=== PATIENT | female | born 1970 | race Caucasian/White ===

== ENCOUNTER 2022-07-17 05:13 | Emergency (ER) | payer MEDICAID, OTHER ==
[~2022-07-17] VITALS: Ht 154.9 cm; Wt 71.1 kg
[2022-07-17 08:29] VITALS: BP 116/78
[2022-07-17] MEDS ORDERED: KETOROLAC TROMETH 60MG/2ML VIAL IM ONE (08:30)
[2022-07-17] MEDS ORDERED: HYDROcodone-ACET 5/325MG TAB PO ONE (08:30)
[2022-07-17] MEDS ORDERED: methylPREDNISolone SOD SUCC 125 MG/2 ML VL IM ONE (08:45)
[2022-07-17] MEDS ORDERED: TRAM-297 PO (09:12)
[2022-07-17] MEDS ORDERED: PRED20TA2 PO (09:12)
== END 2022-07-17 09:30 | disposition home or self-care (01) ==
LOC: ER 05:13
DX: M51.36 Other intervertebral disc degeneration, lumbar region (principal); G89.4 Chronic pain syndrome; Z79.899 Other long term (current) drug therapy; Z88.0 Allergy status to penicillin
CPT/HCPCS: 96372; 99284; J1885; J2930